=== PATIENT | male | born 1985 | race Asian ===

== ENCOUNTER 2019-08-14 16:44 | Emergency (ER) | payer SELFPAY ==
[~2019-08-14] VITALS: Ht 154.9 cm; Wt 61.4 kg
[2019-08-14] MEDS ORDERED: ACET-2247 PO (16:52)
[2019-08-14] MEDS ORDERED: IBUPROFEN 800 MG TABLET PO ONE (18:45)
[2019-08-14 21:30] VITALS: BP 112/75
== END 2019-08-14 21:50 | disposition home or self-care (01) ==
LOC: EMS 16:46
DX: J02.8 Acute pharyngitis due to other specified organisms (principal); B97.89 Other viral agents as the cause of diseases classified elsewhere
CPT/HCPCS: 87430